=== PATIENT | female | born 1945 | race Caucasian/White ===

== ENCOUNTER 2017-03-22 12:18 | Emergency (ER) | payer MEDICARE, OTHER ==
[2017-03-22 14:16] VITALS: BP 150/69
--- NOTE | 2017-03-22 14:56 | UC ---
Abdominal Pain Female HPI - HPI Summary HPI Summary: Right lower abdomen pain began 2 days after [place] and has been getting worse --change in Bowel Habits (reports always being constipated but now is worse). Has a decreased appetite-unsure about fevers---hurts to lay on right side--- right lower abdomen is tender to touch---patient states she gets swelling in her leg (pointing to her groin) now and then - History of Current Complaint Chief Complaint: UCLowerExtremity Stated Complaint: LEG PAIN Time Seen by Provider: 03/22/17 14:44 Hx Obtained From: Patient ?: No Onset/Duration: Gradual Onset, Lasting Weeks - 2, Still Present Timing: Constant Severity Initially: Moderate Severity Currently: Moderate Pain Intensity: 8 Pain Scale Used: 0-10 Numeric Location: Discrete At: RLQ Radiates: Yes Radiates to: Inguinal Character: Unable to describe Aggravating Factor(s): Movement Alleviating Factor(s): Nothing Associated Signs and Symptoms: Positive: Constipation, Decreased Appetite, Nausea Allergies/Adverse Reactions: Allergies Allergy/AdvReac Type Severity Reaction Status Date / Time Cyclobenzaprine Allergy See Comment Verified 03/22/17 14:17 [From Flexeril] Ibuprofen Allergy Unknown Verified 03/22/17 14:17 Reaction Details Iodine Allergy Unknown Verified 03/22/17 14:17 Reaction Details Home Medications: Home Medications Alprazolam [Xanax] 0.25 mg PO 03/22/17 [History] Aspirin [Aspirin Adult Low Dose] 81 mg PO 03/22/17 [History] Cyclobenzaprine TAB* [Flexeril 10 MG TAB*] 10 mg PO BID PRN 03/22/17 [History Confirmed 03/22/17] Esomeprazole Magnesium [Nexium] 40 mg PO 03/22/17 [History] Rosuvastatin Calcium [Crestor] 20 mg PO 03/22/17 [History] PMH/Surg Hx/FS Hx/Imm Hx Previously Healthy: No - has never had a colonoscopy 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 Endocrine History: Dyslipidemia GI/ History: Gastroesophageal Reflux - Surgical History Surgical History: Yes Surgery Procedure, Year, and Place: tubal ligation - Family History Known Family History: Positive: None - Social History Occupation: Retired Lives: With Family Alcohol Use: None Substance Use Type: None Smoking Status (MU): Never Smoked Tobacco Review of Systems Constitutional: Negative Skin: Negative Eyes: Negative ENT: Negative Respiratory: Negative Cardiovascular: Negative Gastrointestinal: Abdominal Pain, Nausea, Other - Constipation Genitourinary: Negative Motor: Negative Neurovascular: Negative Musculoskeletal: Negative Neurological: Negative Psychological: Negative Is Patient Immunocompromised?: No All Other Systems Reviewed And Are Negative: Yes Physical Exam Triage Information Reviewed: Yes Appearance: Ill-Appearing, Pain Distress - mild, Thin Vital Signs: Initial Vital Signs Temp 99.2 F 03/22/17 14:08 Pulse 111 03/22/17 14:08 Resp 18 03/22/17 14:08 BP 150/69 03/22/17 14:08 Pulse Ox 100 03/22/17 14:08 Vital Signs Reviewed: Yes Eye Exam: Normal Eyes: Positive: Conjunctiva Clear ENT Exam: Normal ENT: Positive: Normal ENT inspection, Hearing grossly normal, Pharynx normal. Negative: Nasal congestion, Trismus, Muffled voice, Hoarse voice, Dental tenderness, Sinus tenderness Dental Exam: Normal Neck exam: Normal Neck: Positive: Supple, Nontender, No Lymphadenopathy Respiratory Exam: Normal Respiratory: Positive: Chest non-tender, Lungs clear, Normal breath sounds, No respiratory distress Cardiovascular Exam: Normal Cardiovascular: Positive: No Murmur, Pulses Normal, Tachycardia Abdominal Exam: Normal Abdomen Description: Positive: No Organomegaly, Soft, Guarding. Negative: CVA Tenderness (R), CVA Tenderness (L) Bowel Sounds: Positive: Present Musculoskeletal Exam: Normal Musculoskeletal: Positive: Strength Intact, ROM Intact, No Edema Neurological Exam: Normal Neurological: Positive: Alert, Muscle Tone Normal Psychological Exam: Normal Skin Exam: Normal Abd Pain Female Course/Dx - Course Course Of Treatment: to [facility] ED for evaluation of abdomen pain - Differential Dx/Diagnosis Provider Diagnoses: Unresolved abdomen pain, Tachycardia Discharge - Discharge Plan Condition: Stable Disposition: OTHER Discharge Disposition Comment: to [facility] by private car, with son driving Patient Education Materials: Acute Abdominal Pain (ED), Hypertension (ED) Referrals: [facility] PHYSICIAN REFERRAL [Outside] - As Soon As Possible Additional Instructions: Please go directly to the Emergency Department for a comprehensive assessment of your abdomen pain
== END 2017-03-22 15:04 ==
LOC: UCEAST 12:18
DX: R10.31 Right lower quadrant pain (principal); R00.0 Tachycardia, unspecified; K59.00 Constipation, unspecified; R11.0 Nausea; Z79.82 Long term (current) use of aspirin; E78.5 Hyperlipidemia, unspecified; K21.9 Gastro-esophageal reflux disease without esophagitis; Z88.6 Allergy status to analgesic agent; Z88.8 Allergy status to other drugs, medicaments and biological substances
CPT/HCPCS: 99202; G0463

== ENCOUNTER 2017-03-22 15:37 | Inpatient (IN) | payer MEDICARE ==
[2017-03-22 17:22] LABS: ABS Basophils 0 10^3/ul (0-0.2); ABS Eosinophils 0.1 10^3/ul (0-0.6); ABS Lymphocytes 1.7 10^3/ul (1.0-4.8); ABS Monocytes 0.8 10^3/ul (0-0.8); ABS Nucleated RBC 0 10^3/ul; Eosinophil % 0.4 % (0-6); Hematocrit 41 % (35-47); Hemoglobin 13.7 g/dl (12.0-16.0); Lymphocyte % 11.3 % (25-47); Mean Corpuscular HGB Conc 34 g/dl (31-36); Mean Corpuscular Hemoglobin 30 pg (27-31); Mean Corpuscular Volume 89 fL (80-97); Mean Platelet Volume 8 um3 (7.4-10.4); Nucleated Red Blood Cells % 0; Platelet Count 332 10^3/ul (150-450); Red Blood Count 4.56 10^6/ul (4.0-5.4); Red Cell Distribution Width 13 % (10.5-15); White Blood Count 14.6 10^3/ul (3.5-10.8)
[2017-03-22 17:33] LABS: EGFR Non-African American 86.5 (>60)
[2017-03-22 18:06] LABS: Urine Appearance Clear; Urine Blood Negative (Negative); Urine Color Straw; Urine Ketones Negative (Negative); Urine Protein Negative (Negative); Urine Specific Gravity 1.002 (1.010-1.030); Urine Urobilinogen Negative (Negative)
[2017-03-22] MEDS ORDERED: NS 0.9% 1000 ML* 1,000 ML IV ONE (21:01)
--- NOTE | 2017-03-22 21:49 | RAD ---
CLINICAL HISTORY: Right lower quadrant pain COMPARISON: None TECHNIQUE: Multiple contiguous axial CT scans were obtained of the abdomen and pelvis, without intravenous contrast enhancement. Coronal and sagittal multiplanar reformations are submitted for review. Oral contrast was not administered. The study is limited by the lack of intravenous contrast. This limits evaluation of the solid organs and vasculature. FINDINGS: LUNG BASES: The lung bases are clear. LIVER: The liver is normal in shape, size, contour, and attenuation. BILE DUCTS: There is no intrahepatic or extrahepatic biliary dilatation. GALLBLADDER: The gallbladder is normal, without pericholecystic inflammatory change. PANCREAS: The pancreas is normal, without mass or ductal dilatation. SPLEEN: Normal in size and appearance. UPPER GI TRACT: Evaluation of the gastrointestinal tract is limited by incomplete gastric distention. The upper GI tract is unremarkable. SMALL BOWEL AND MESENTERY: The small bowel is normal in contour, course, and caliber. There is no obstruction or dilatation. COLON: There is inflammatory change with a soft tissue density within the right lower quadrant measuring 4.4 cm in size, suggestive of phlegmon, consistent with the tip of the appendix in the right ovary. ADRENALS: Normal bilaterally. KIDNEYS: The kidneys are normal in shape, size, contour, and axis. There is no hydronephrosis or nephrolithiasis. BLADDER: The bladder is smooth in contour. PELVIC ORGANS: As noted above there is infiltrate change within the right lower quadrant contiguous with right ovary. Pelvic organs are otherwise unremarkable. AORTA: There is calcific atherosclerotic disease of the abdominal aorta and its branches, without aneurysmal dilatation IVC: Unremarkable LYMPH NODES: There is no lymphadenopathy by size criteria. ABDOMINAL WALL: There is no evidence for abdominal wall hernia. BONES AND SOFT TISSUES: Degenerative changes are noted OTHER: None IMPRESSION: THERE IS INFLAMMATORY CHANGE AND A SOFT TISSUE DENSITY CENTERED ON THE APPENDIX, EXTENDING TO THE RIGHT OVARY, SUGGESTIVE OF PHLEGMON IN THE SETTING OF ACUTE APPENDICITIS. SMALL ABSCESS CAN'T BE EXCLUDED GIVEN THE LACK OF INTRAVENOUS CONTRAST.
[2017-03-22] MEDS ORDERED: HYDROmorphone INJ* 1 MG/ML CARPUJECT SYRINGE IV PRN (23:03)
[2017-03-23] MEDS ORDERED: ZOSYN 3.375 GM x ONE DOSE over 30 miuntes IVPB ×2
[2017-03-23] MEDS: NS 0.9% 1000 ML* 1,000 ML IV SCH ×3 (00:11→21:26)
[2017-03-23] MEDS: Ondansetron INJ* 2 MG/ML VIAL IV PRN (02:55)
--- NOTE | 2017-03-23 04:33 | ED ---
Dima Wall Natalie, scribed for Carlos Enrique Aaron MD on 03/22/17 at 2021 . Abdominal Pain/Female - HPI Summary HPI Summary: The pt is a 71 y/o F presenting to the ED c/o RLQ abd pain for about 5 days. She went to [facility] today for the swelling in her right hip, and thats when she realized that her RLQ was tender, so she was sent to the ED. The pain is rated 5/10. The pain is aggravated by palpitation and BM. She is not in pain when bending over, but the pain in her hip radiates to her knee and becomes worse at night. Pt additionally c/o bloating, flatulence, anxiety, loss of sleep , and decreased appetite. Pt denies painful urination. She has been taking Senokot for a few days. - History of Current Complaint Chief Complaint: EDAbdPain Stated Complaint: ABD PAIN-TRANSFER FROM Time Seen by Provider: 03/22/17 19:56 Hx Obtained From: Patient Onset/Duration: Gradual Onset, Lasting Days - started a few days ago, Still Present Timing: Days Severity Initially: Moderate Severity Currently: Moderate Pain Intensity: 5 Pain Scale Used: 0-10 Numeric Location: Discrete At: RLQ Aggravating Factor(s): Other: - palpitation, flatulence Alleviating Factor(s): Nothing Associated Signs and Symptoms: Positive: Decreased Appetite, Other: - POSITIVE: swelling in right hip, bloating, flatulence, anxiety, sleep loss, dry mouth. Negative: Urinary Symptoms Allergies/Adverse Reactions: Allergies Allergy/AdvReac Type Severity Reaction Status Date / Time Cyclobenzaprine Allergy See Comment Verified 03/22/17 14:17 [From Flexeril] Ibuprofen Allergy Unknown Verified 03/22/17 14:17 Reaction Details Iodine Allergy Unknown Verified 03/22/17 14:17 Reaction Details PMH/Surg Hx/FS Hx/Imm Hx Previously Healthy: No Endocrine/Hematology History: Denies: Hx Diabetes Cardiovascular History: Denies: Hx Hypertension EENT History: Reports: Hx Deafness Psychiatric History: Reports: Hx Anxiety - Surgical History Surgery Procedure, Year, and Place: tubal ligation Infectious Disease History: No Infectious Disease History: Denies: Traveled Outside the [place] in Last 30 Days - Family History Known Family History: Negative: Cardiac Disease, Hypertension - Social History Alcohol Use: None Substance Use Type: Reports: None Smoking Status (MU): Never Smoked Tobacco Review of Systems Gastrointestinal: Other - bloating, flatulence Positive: Abdominal Pain - RLQ Genitourinary: Other - normal urination Positive: Other - right hip pain Neurological: Other - sleep loss, decreased appetite Positive: Anxious All Other Systems Reviewed And Are Negative: Yes Physical Exam Triage Information Reviewed: Yes Vital Signs On Initial Exam: Initial Vitals Temp Pulse Resp BP Pulse Ox 98.1 F 114 20 148/72 100 03/22/17 15:41 03/22/17 15:41 03/22/17 15:41 03/22/17 15:41 03/22/17 15:41 Vital Signs Reviewed: Yes Appearance: Positive: Well-Appearing, No Pain Distress Skin: Positive: Warm, Skin Color Reflects Adequate Perfusion, Dry Head/Face: Positive: Normal Head/Face Inspection Eyes: Positive: EOMI, BARI ENT: Positive: Normal ENT inspection Neck: Positive: Supple, Nontender Respiratory/Lung Sounds: Positive: Clear to Auscultation, Breath Sounds Present Cardiovascular: Positive: Tachycardia, Other - Tympany Abdomen Description: Positive: Soft, Other: - Mild tenderness in RLQ Bowel Sounds: Positive: Present Musculoskeletal: Positive: Normal, Strength/ROM Intact Neurological: Positive: Normal, Sensory/Motor Intact, Alert, Oriented to Person Place, Time Psychiatric: Positive: Affect/Mood Appropriate - [place] Coma Scale Coma Scale Total: 15 Diagnostics - Vital Signs Vital Signs Temp Pulse Resp BP Pulse Ox 03/22/17 19:49 112 97 03/22/17 19:48 142/85 03/22/17 18:52 98.3 F 110 16 128/58 100 03/22/17 17:21 98.4 F 102 16 119/63 99 03/22/17 15:41 98.1 F 114 20 148/72 100 - Laboratory Lab Results: Lab Results 03/22/17 03/22/17 03/22/17 Range/Units 17:03 17:03 17:26 WBC 14.6 H (3.5-10.8) 10^3/ul RBC 4.56 (4.0-5.4) 10^6/ul Hgb 13.7 (12.0-16.0) g/dl Hct 41 (35-47) % MCV 89 (80-97) fL MCH 30 (27-31) pg MCHC 34 (31-36) g/dl RDW 13 (10.5-15) % Plt Count 332 (150-450) 10^3/ul MPV 8 (7.4-10.4) um3 Neut % (Auto) 82.3 (38-83) % Lymph % (Auto) 11.3 L (25-47) % [place] % (Auto) 5.8 (1-9) % Eos % (Auto) 0.4 (0-6) % Baso % (Auto) 0.2 (0-2) % Absolute Neuts (auto) 12.0 H (1.5-7.7) 10^3/ul Absolute Lymphs (auto) 1.7 (1.0-4.8) 10^3/ul Absolute Monos (auto) 0.8 (0-0.8) 10^3/ul Absolute Eos (auto) 0.1 (0-0.6) 10^3/ul Absolute Basos (auto) 0 (0-0.2) 10^3/ul Absolute Nucleated RBC 0 10^3/ul Nucleated RBC % 0 Sodium 134 (133-145) mmol/L Potassium 3.3 L (3.5-5.0) mmol/L Chloride 96 L (101-111) mmol/L Carbon Dioxide 31 (22-32) mmol/L Anion Gap 7 (2-11) mmol/L BUN 6 (6-24) mg/dL Creatinine 0.67 (0.51-0.95) mg/dL Est GFR ( Amer) 111.3 (>60) Est GFR (Non-Af Amer) 86.5 (>60) BUN/Creatinine Ratio 9.0 (8-20) Glucose 178 H (70-100) mg/dL Calcium 9.4 (8.6-10.3) mg/dL Total Bilirubin 0.50 (0.2-1.0) mg/dL AST 13 (13-39) U/L ALT 10 (7-52) U/L Alkaline Phosphatase 72 (34-104) U/L C-React Prot High Sens 38.59 mg/L Total Protein 7.3 (6.4-8.9) g/dL Albumin 3.8 (3.2-5.2) g/dL Globulin 3.5 (2-4) g/dL Albumin/Globulin Ratio 1.1 (1-3) Lipase < 10 L (11.0-82.0) U/L Urine Color Straw Urine Appearance Clear Urine pH 7.0 (5-9) Ur Specific [place] 1.002 L (1.010-1.030) Urine Protein Negative (Negative) Urine Ketones Negative (Negative) Urine Blood Negative (Negative) Urine Nitrate Negative (Negative) Urine Bilirubin Negative (Negative) Urine Urobilinogen Negative (Negative) Ur Leukocyte Esterase 1+ H (Negative) Urine WBC (Auto) Trace(0-5/hpf) (Absent) Urine RBC (Auto) Absent (Absent) Ur Squamous Epith Cells Present H (Absent) Urine Bacteria Absent (Absent) Urine Glucose Negative (Negative) Result Diagrams: 03/22/17 17:03 03/22/17 17:03 Lab Statement: Any lab studies that have been ordered have been reviewed, and results considered in the medical decision making process. - CT Abdomen/Pelvis CT CT Interpretation: Positive (See Comments) - There is inflammatory change and a soft tissue density centered on the appendix, extending to the right ovary, suggestive of phlegmon in the setting of acute appendicitis. Small abscess can' t be excluded given the lack of intravenous contrast. ED physician has reviewed this report. CT Interpretation Completed By: Radiologist - EKG 20:27 Cardiac Rate: Tachycardia EKG Rhythm: Sinus Tachycardia - 100 BPM EKG Interpretation: Nml ST. No ectopy. Abdominal Pain Fem Course/Dx - Course Course Of Treatment: BP noted and advised to follow up with PCP. Medications noted. Allergies noted. DISCUSSED RESULTS WITH PATIENT, SON AND DR HERNANDEZ, SURGERY. ADMIT SURGERY. - Diagnoses Provider Diagnoses: Appendicitis Discharge - Discharge Plan Condition: Stable Disposition: ADMITTED TO [facility] The documentation as recorded by the Dima cody Natalie accurately reflects the service I personally performed and the decisions made by me, Carlos Enrique Aaron MD.
[2017-03-23 05:25] LABS: ABS Basophils 0 10^3/ul (0-0.2); ABS Eosinophils 0.1 10^3/ul (0-0.6); ABS Lymphocytes 1.2 10^3/ul (1.0-4.8); ABS Monocytes 0.8 10^3/ul (0-0.8); ABS Neutrophils 10.7 10^3/ul (1.5-7.7); ABS Nucleated RBC 0 10^3/ul; Eosinophil % 0.4 % (0-6); Hematocrit 36 % (35-47); Hemoglobin 12.4 g/dl (12.0-16.0); Lymphocyte % 9.3 % (25-47); Mean Corpuscular HGB Conc 35 g/dl (31-36); Mean Corpuscular Hemoglobin 30 pg (27-31); Mean Corpuscular Volume 88 fL (80-97); Mean Platelet Volume 8 um3 (7.4-10.4); Nucleated Red Blood Cells % 0; Platelet Count 282 10^3/ul (150-450); Red Blood Count 4.07 10^6/ul (4.0-5.4); Red Cell Distribution Width 13 % (10.5-15); White Blood Count 12.7 10^3/ul (3.5-10.8)
[2017-03-23] MEDS: Piperacillin/Tazobactam VIAL*) 3.375 GM in NS 0.9% 100 ML* 100 ML IVPB SCH ×2 (05:29→14:10)
[2017-03-23 05:44] LABS: EGFR Non-African American 100.2 (>60)
[2017-03-23] MEDS: KCL premix 10MEQ/50 ML x 2 BAGS IV SCH ×2 (09:34→11:01)
--- NOTE | 2017-03-23 10:16 | HP ---
CC: Dr. Sullivan, [facility]; Family Medicine * PRIORITY ADMISSION HISTORY AND PHYSICAL: DATE OF ADMISSION: This patient is seen at [facility] in room 331 on 03/23/17. ATTENDING PHYSICIAN: Dr. Sullivan * (DICTATED BY MIRTHA ARMENTA NP) CHIEF COMPLAINT: Worsening right lower quadrant abdominal pain. HISTORY OF PRESENT ILLNESS: The patient is a 71-year-old female, who presented to the emergency department last evening complaining of right lower quadrant abdominal pain for the past 5 days. She went to the [facility] yesterday for pain and swelling in the right hip region and that is when she realized that she was also having right lower quadrant abdominal pain and she was sent to the emergency department. At that time, she rated the pain at 5/10 and the pain was aggravated by palpation. She denied any fever or chills at home or any vomiting, but states that her appetite has been decreased for about 5 days. She denied any dysuria; she had been taking Senokot for a few days and her last bowel movement was about 3 days ago. CAT scan of the abdomen and pelvis revealed inflammatory changes and soft tissue densities centered on the appendix extending to the right ovary suggestive of phlegmon. This was reviewed by Dr. Sullivan. On admission, her white blood cell count was 14.6 and this morning it is 12.7. On admission, her potassium was 3.3 and this morning it is 3.1 and she will be repleted with potassium IV. PAST MEDICAL HISTORY: Elevated cholesterol, acid reflux, chronic back and joint pain, chronic constipation. PAST SURGICAL HISTORY: Tubal ligation over 30 years ago. MEDICATIONS AT HOME: Include: 1. Nexium. 2. Crestor. 3. Baby aspirin. ALLERGIES: 1. CYCLOBENZAPRINE caused swelling around her eyes. 2. IBUPROFEN caused some type of unspecified swelling. 3. IODINE tablets caused some type of unspecified reaction many years ago. FAMILY HISTORY: Mother of some type of unspecified cancer. Father from emphysema. No known anesthesia complications, blood clots, or bleeding disorders in the family. SOCIAL HISTORY: She lives alone; she has never been a smoker. She denies use of alcohol or other substances. Her son lives nearby and accompanies her this morning. REVIEW OF SYSTEMS: Constitutional: Denies any fever, chills, excessive fatigue , or significant weight loss. Endocrine: No diabetes or thyroid disease. Respiratory: Nonsmoker. No chronic cough or shortness of breath. Cardiovascular: No anginal chest pain or palpitations. Gastrointestinal: As in history of present illness. Genitourinary: No dysuria. No history of kidney stones. General: No history of deep vein thrombosis or pulmonary embolism. No history of blood transfusions. No previous anesthesia complications. Musculoskeletal: Complaints of chronic back pain and muscle spasms. Neurologic: No chronic headaches or blurred vision. No focal weakness. PHYSICAL EXAMINATION GENERAL SURVEY: The patient is a 71-year-old female, well-developed and well- nourished, in no acute distress. HEENT: Benign. NECK: Supple. No cervical lymphadenopathy. LUNGS: Breath sounds bilaterally clear and equal. HEART: Regular rate and rhythm. No murmurs or rubs appreciated. ABDOMEN: Hypoactive bowel sounds. Soft, exquisite tenderness in the periumbilical and right lower quadrant. Mild guarding, no rigidity, no obvious masses or organomegaly, but exam is limited by the patient's discomfort. PELVIC: Deferred. RECTAL: Deferred. EXTREMITIES: Warm without edema or skin ulcerations. NEUROLOGIC: Alert and oriented x3. IMPRESSION: Acute appendicitis. PLAN: Per Dr. Sullivan, the patient will go to the operating room today for laparoscopic appendectomy. She will be repleted with IV potassium preoperatively. She is currently on Zosyn and IV fluids and n.p.o.; I explained the nature of laparoscopic appendectomy, the typical postoperative course, and she and her son have had a chance to ask questions. TIME SPENT: Sixty minutes with more than 50% in [id number] history taking and coordination of care. MIRTHA ARMENTA NP [id number]/[facility] #: [id number] PAIGE
[2017-03-23] MEDS ORDERED: fentaNYL* 50 MCG/ML 2 ML VIAL (100 MCG VIAL) ONE ×3 (15:56→19:04)
[2017-03-23] MEDS ORDERED: Lidocaine 2% PF * 5 ML VIAL ONE (15:56)
[2017-03-23] MEDS ORDERED: Succinylcholine* 20 MG/ML 10 ML VIAL ONE (15:57)
[2017-03-23] MEDS ORDERED: Dexamethasone IV* 4 MG/ML 1 ML (4 MG) ONE (15:57)
[2017-03-23] MEDS ORDERED: Propofol* 10 MG/ML 20 ML BTL IV PUSH ONE (15:57)
[2017-03-23] MEDS ORDERED: Ondansetron INJ* 2 MG/ML VIAL ONE (15:57)
[2017-03-23] MEDS ORDERED: Ketorolac INJ* 30 MG/ML 1 ML VIAL ONE (15:57)
[2017-03-23] MEDS ORDERED: Bupivacaine 0.25% SDV* 30 ML ONE (16:07)
[2017-03-23] MEDS ORDERED: DiMENhydriNATE IV* 50 MG/ML VIAL IV PUSH PRN (18:02)
[2017-03-23] MEDS ORDERED: Naloxone* 0.4 MG/ML 1 ML VIAL IV PRN (18:02)
[2017-03-23] MEDS ORDERED: DiMENhydriNATE IV* 50 MG/ML VIAL ONE (18:02)
[2017-03-23] MEDS ORDERED: Scopolamine 1.5 mg* PATCH TRANSDERM PRN (18:02)
[2017-03-23] MEDS: fentaNYL* 50 MCG/ML 2 ML VIAL (100 MCG VIAL) IV PRN ×4 (18:18→18:29)
[2017-03-23] MEDS ORDERED: Scopolamine 1.5 mg* PATCH ONE (18:31)
[2017-03-23] MEDS ORDERED: HYDROmorphone INJ* 1 MG/ML CARPUJECT SYRINGE ONE (19:19)
[2017-03-23] MEDS ORDERED: Acetaminophen ADULT LIQ* 650 MG/20.3 ML UDC ONE (19:19)
[2017-03-23] MEDS ORDERED: HYDROmorphone INJ* 1 MG/ML CARPUJECT SYRINGE IV PRN (19:34)
[2017-03-23] MEDS ORDERED: Acetaminophen ADULT LIQ* 650 MG/20.3 ML UDC PO ONE (20:00)
[2017-03-23] MEDS ORDERED: HYDROmorphone INJ* 2 MG/ML CARPUJECT SYRINGE IV PRN (21:00)
[2017-03-23] MEDS: Heparin VIAL(*) 5000 UNITS/ML VIAL (FIVE THOUSAND) SUBCUT SCH (21:55)
[2017-03-23] MEDS: Piperacillin/Tazobactam 13.5 GM IV 24 hour continuous infusion IVPB SCH ×2 (21:55)
[2017-03-24] MEDS: Ondansetron INJ* 2 MG/ML VIAL IV PRN (04:28)
[2017-03-24] MEDS: NS 0.9% 1000 ML* 1,000 ML IV SCH (07:56)
[2017-03-24] MEDS: Heparin VIAL(*) 5000 UNITS/ML VIAL (FIVE THOUSAND) SUBCUT SCH ×2 (07:56→21:19)
[2017-03-24] MEDS: ESOMEPRAZOLE 40 MG PO SCH (08:38)
[2017-03-24] MEDS ORDERED: Omeprazole CAP* 20 MG PO SCH (09:00)
[2017-03-24] MEDS: Acetaminophen TAB* 325 MG PO PRN ×2 (14:02→18:41)
--- NOTE | 2017-03-24 14:56 | OP ---
DATE OF OPERATION: 03/23/17 - ROOM #331 DATE OF : 43 SURGEON: Wilian Sullivan MD PULMONARY DISEASE SPECIALIST: None. ANESTHESIOLOGIST: Gold Contreras MD ANESTHESIA: General anesthetic, local infiltration. PRE-OP DIAGNOSIS: Acute appendicitis. POST-OP DIAGNOSIS: Acute appendicitis with perforation and abscess. OPERATIVE PROCEDURE: Laparoscopic appendectomy. DESCRIPTION OF PROCEDURE: The patient was supine on the operating room table. After adequate general anesthetic, compression stockings, Josue-Hugger warmer, and intravenous antibiotics, the abdomen was prepped with antiseptic, draped in a sterile fashion. Small umbilical incision was created and blunt port cannula was placed. Insufflation was carried out with carbon dioxide. Additional cannulae, 5 mm left lower quadrant and left mid abdomen, were placed with small stab wounds under direct vision. The appendix was tucked in behind the terminal ileum and upon lifting up the terminal ileum, abscess was encountered. Culture was taken of this. Irrigation was carried out. The terminal ileum was mobilized off the appendix. The appendix was also adherent on to the right tube and ovary and pelvic side wall. This was mobilized off there. The base of the appendix was not particularly inflamed. The cecum at the base of the appendix was divided using an Endo ALCIRA stapler with a 60-mm babb load and mesoappendix was divided with another firing of the same. The appendix was placed into a retrieval bag and brought out through the umbilical site. The operative field was well irrigated with warm saline solution. Free fluid was suctioned out. A Stefan-Stuart drain was brought in through the left suprapubic incision, passed down into the pelvis, and then the tip up into the region of the abscess in the right lower quadrant. This was sutured to the skin with 3-0 Prolene. The umbilical fascia was closed with 0 Vicryl and the skin with 5-0 Vicryl followed by Steri-Strips. She tolerated the procedure well , was awakened, and brought to Recovery in good condition. No complications. Drain was Stefan-Stuart. Sponge and instrument counts correct. Estimated blood loss less than 50 mL. Specimen was appendix and culture. [id number]/[facility] #: [id number] MTDD
[2017-03-24] MEDS: PTO:Rosuvastatin (NF) 20 MG TAB PO SCH (16:20)
[2017-03-24] MEDS: Piperacillin/Tazobactam 13.5 GM IV 24 hour continuous infusion IVPB SCH ×2 (21:19)
[2017-03-24] MEDS: oxyCODONE/Acetamin 5/325 MG* TAB PO PRN (21:19)
[2017-03-25] MEDS: oxyCODONE/Acetamin 5/325 MG* TAB PO PRN (03:39)
[2017-03-25] MEDS: Ondansetron INJ* 2 MG/ML VIAL IV PRN (05:25)
[2017-03-25] MEDS: NS 0.9% 1000 ML* 1,000 ML IV SCH (05:26)
[2017-03-25 05:52] LABS: ABS Basophils 0 10^3/ul (0-0.2); ABS Eosinophils 0.1 10^3/ul (0-0.6); ABS Lymphocytes 1.6 10^3/ul (1.0-4.8); ABS Monocytes 0.7 10^3/ul (0-0.8); ABS Neutrophils 10.4 10^3/ul (1.5-7.7); ABS Nucleated RBC 0 10^3/ul; Eosinophil % 1.1 % (0-6); Hematocrit 38 % (35-47); Hemoglobin 12.9 g/dl (12.0-16.0); Lymphocyte % 12.3 % (25-47); Mean Corpuscular HGB Conc 34 g/dl (31-36); Mean Corpuscular Hemoglobin 30 pg (27-31); Mean Corpuscular Volume 89 fL (80-97); Mean Platelet Volume 8 um3 (7.4-10.4); Nucleated Red Blood Cells % 0; Platelet Count 337 10^3/ul (150-450); Red Blood Count 4.29 10^6/ul (4.0-5.4); Red Cell Distribution Width 14 % (10.5-15); White Blood Count 12.8 10^3/ul (3.5-10.8)
[2017-03-25 06:07] LABS: EGFR Non-African American 85.1 (>60)
[2017-03-25] MEDS: Heparin VIAL(*) 5000 UNITS/ML VIAL (FIVE THOUSAND) SUBCUT SCH ×2 (09:18→22:09)
[2017-03-25] MEDS: ESOMEPRAZOLE 40 MG PO SCH (09:18)
[2017-03-25] MEDS ORDERED: Docusate CAP* 100 MG PO PRN (09:52)
--- NOTE | 2017-03-25 09:58 | PN ---
Progress Note - Progress Note Date of Service: 03/25/17 SOAP: Subjective: Patient seen and examined at bedside. Reports feeling "lousy", constipated and anxious at times. Denies nausea or vomiting. No fever or chills. Ambulatory down the pal. Objective: VSS, afebrile Lungs CTA bilat. Hear RRR, no murmurs. Abdomen soft, NT, ND. Incisions C/D/I. REBECCA vac with 20 cc serous output. No guarding or rebound. Labs noted, WBC 12,000, K 3.2 I/Os noted Assessment: POD#2, s/p laparoscopic appendectomy for perforated appendicitis with abscess Plan: Continue Zosyn Resume Xanax Hypokalemia, replace K Hopefully home tomorrow 03/26
[2017-03-25] MEDS: Potassium Chloride LIQUID* 20 MEQ PACKET PO SCH (11:00)
[2017-03-25] MEDS: ALPRAZolam TAB* 0.5 MG PO SCH (11:01)
[2017-03-25] MEDS: PTO:Rosuvastatin (NF) 20 MG TAB PO SCH (15:56)
[2017-03-25] MEDS: Acetaminophen TAB* 325 MG PO PRN (19:59)
[2017-03-26] MEDS: Piperacillin/Tazobactam 13.5 GM IV 24 hour continuous infusion IVPB SCH ×4 (02:43→02:47)
[2017-03-26] MEDS: Acetaminophen TAB* 325 MG PO PRN ×2 (05:04→16:36)
[2017-03-26] MEDS: NS 0.9% 1000 ML* 1,000 ML IV SCH (07:28)
[2017-03-26] MEDS: ESOMEPRAZOLE 40 MG PO SCH (07:28)
[2017-03-26] MEDS: ALPRAZolam TAB* 0.5 MG PO SCH (08:32)
[2017-03-26] MEDS: Heparin VIAL(*) 5000 UNITS/ML VIAL (FIVE THOUSAND) SUBCUT SCH ×2 (08:33→22:18)
[2017-03-26] MEDS: Potassium Chloride LIQUID* 20 MEQ PACKET PO SCH (08:33)
[2017-03-26] MEDS ORDERED: Magnesium Hydroxide LIQ* 30 ML UDC PO ONE (10:13)
[2017-03-26] MEDS: PTO:Rosuvastatin (NF) 20 MG TAB PO SCH (16:36)
[2017-03-26] MEDS ORDERED: ALPRAZolam TAB* 0.25 MG PO PRN (23:50)
[2017-03-27] MEDS: Acetaminophen TAB* 325 MG PO PRN ×2 (03:03→11:28)
[2017-03-27] MEDS: Piperacillin/Tazobactam 13.5 GM IV 24 hour continuous infusion IVPB SCH ×2 (03:09)
[2017-03-27] MEDS: Heparin VIAL(*) 5000 UNITS/ML VIAL (FIVE THOUSAND) SUBCUT SCH (09:36)
[2017-03-27] MEDS: Potassium Chloride LIQUID* 20 MEQ PACKET PO SCH (09:36)
[2017-03-27] MEDS: Nystatin SUSPENSION* 100000 UNITS/ML 5 ML UDC PO SCH ×2 (09:36→13:31)
[2017-03-27] MEDS: ALPRAZolam TAB* 0.5 MG PO SCH (09:36)
[2017-03-27] MEDS: PTO:Rosuvastatin (NF) 20 MG TAB PO SCH (09:42)
[2017-03-27] MEDS: ESOMEPRAZOLE 40 MG PO SCH (11:25)
[2017-03-27 12:14] VITALS: BP 132/71
--- NOTE | 2017-03-28 02:16 | DS ---
CC: Wilian Sullivan MD; Calos Yap MD DISCHARGE SUMMARY: DATE OF ADMISSION: 03/23/17 DATE OF DISCHARGE: 03/27/17 PRINCIPAL ADMITTING DIAGNOSIS: Appendicitis with periappendiceal abscess. OPERATIVE PROCEDURE ON THIS ADMISSION: Laparoscopic appendectomy. HOSPITAL COURSE: The patient came to the hospital and was taken to the operating room for laparoscop ic appendectomy and was found to have a periappendiceal abscess. She had drainage from the abscess an d placement of a drain and appendectomy. She was maintained on intravenous antibiotics. Her culture s ultimately grew E. coli, H. parainfluenzae and strep intermedius. She continued to improve and by the fourth day was discharged home on oral antibiotics. She did develop some oral thrush and was sen t home with prescriptions for Augmentin, for nystatin swish and swallow as well as pain medicine. Dwight hair did have some hypertension and will be following up with Dr. Yap for medical evaluation in the p ostoperative period. She will also follow up in our office next week. She was discharged home with i nstruction sheet and we will call in the interim if she has any questions or concerns. [id number]/[facility] #: [id number]
== END 2017-03-27 15:30 | disposition home or self-care (01) | DRG 339 ==
LOC: ED 15:37 → SSU 23:03 → OBSVTOIN 03-23 15:00
PROVIDERS: ADMIT Surgery; ATTEND Surgery
PROC: 0DTJ4ZZ Resection of Appendix, Percutaneous Endoscopic Approach (ICD-10-PCS; principal; 2017-03-23 16:00)
DX: K35.3 Acute appendicitis with localized peritonitis (principal); B37.0 Candidal stomatitis; B95.4 Other streptococcus as the cause of diseases classified elsewhere; E78.00 Pure hypercholesterolemia, unspecified; H91.90 Unspecified hearing loss, unspecified ear; F41.9 Anxiety disorder, unspecified; R40.2412 Glasgow coma scale score 13-15, at arrival to emergency department; E87.6 Hypokalemia; G89.29 Other chronic pain; B96.20 Unspecified Escherichia coli [E. coli] as the cause of diseases classified elsewhere; I10 Essential (primary) hypertension; K21.9 Gastro-esophageal reflux disease without esophagitis; B96.89 Other specified bacterial agents as the cause of diseases classified elsewhere; M54.9 Dorsalgia, unspecified; M25.50 Pain in unspecified joint; K59.09 Other constipation; Z98.51 Tubal ligation status; Z88.6 Allergy status to analgesic agent; Z88.8 Allergy status to other drugs, medicaments and biological substances; Z80.9 Family history of malignant neoplasm, unspecified; Z82.5 Family history of asthma and other chronic lower respiratory diseases
CPT/HCPCS: 36415; 74176; 80048; 80053; 81003; 81015; 83690; 85025; 86141; 87070; 87073; 87077; 87086; 87186; 87205; 87640; 87641; 88304; 93005; 99202; 99284; A9270-GY; G0463; J0330; J1100; J1170; J1240; J1644; J1885; J2405; J2543; J2704; J3010; J3480

== ENCOUNTER 2017-05-29 02:35 | Emergency (ER) | payer MEDICARE ==
[2017-05-29] MEDS ORDERED: Famotidine IV* 10 MG/ML 2 ML (20 mg) IV ONE (03:24)
[2017-05-29] MEDS ORDERED: Ketorolac INJ* 30 MG/ML 1 ML VIAL IV ONE (03:24)
[2017-05-29] MEDS ORDERED: Acetaminophen TAB* 325 MG PO ONE (03:24)
[2017-05-29 03:58] LABS: ABS Basophils 0 10^3/ul (0-0.2); ABS Eosinophils 0 10^3/ul (0-0.6); ABS Lymphocytes 1.4 10^3/ul (1.0-4.8); ABS Monocytes 0.5 10^3/ul (0-0.8); ABS Neutrophils 8.9 10^3/ul (1.5-7.7); ABS Nucleated RBC 0 10^3/ul; Eosinophil % 0.5 % (0-6); Hematocrit 45 % (35-47); Hemoglobin 15.3 g/dl (12.0-16.0); Lymphocyte % 12.7 % (25-47); Mean Corpuscular HGB Conc 34 g/dl (31-36); Mean Corpuscular Hemoglobin 30 pg (27-31); Mean Corpuscular Volume 89 fL (80-97); Mean Platelet Volume 8 um3 (7.4-10.4); Nucleated Red Blood Cells % 0; Platelet Count 248 10^3/ul (150-450); Red Blood Count 5.03 10^6/ul (4.0-5.4); Red Cell Distribution Width 13 % (10.5-15); White Blood Count 10.8 10^3/ul (3.5-10.8)
[2017-05-29] MEDS ORDERED: Al Hydrox/Mg Hydrox/Simet LIQ* 30 ML UDC PO ONE (04:07)
[2017-05-29] MEDS ORDERED: Lidocaine 2% VISCOUS* 15 ML UDC PO ONE (04:07)
[2017-05-29 04:10] LABS: EGFR Non-African American 74.8 (>60)
[2017-05-29 05:52] VITALS: BP 145/79
--- NOTE | 2017-05-29 09:08 | RAD ---
INDICATION: Chest pain COMPARISON: None. TECHNIQUE: Single AP portable view of the chest was obtained. FINDINGS: Image quality is compromised due to the relative inferiority of a portable chest x-ray. The heart and mediastinum exhibit normal size and contour. The lungs are grossly clear. There is no evidence of a large pleural effusion. Visualized bones are normal for the patient's age. IMPRESSION: No radiographic evidence for acute cardiopulmonary abnormality on this portable chest x-ray.
--- NOTE | 2017-05-29 15:48 | ED ---
Nicola Wall Sixian, scribed for Reed Jean Baptiste MD on 05/29/17 at 0323 . HPI Chest Pain - HPI Summary HPI Summary: This patient is a 71 year old F presenting to ED with a chief complaint of chest pain since 1800 one day ago. Patient reports heartburn for 4-5 hours and "a pinching feeling" near her left breast. The patient rates the pain 0/10 in severity at this time. Symptoms aggravated by recent excessive chocolate intake.. Patient does some reports anxiety with the symptoms. Patient denies SOB , dizziness, diaphoresis, lightheadedness or N/V. - History of Current Complaint Chief Complaint: EDChestPainROMI Time Seen by Provider: 05/29/17 02:54 Hx Obtained From: Patient Onset/Duration: Started Hours Ago, Still Present Timing: Constant, Lasting Hours Current Severity: None Pain Intensity: 0 Pain Scale Used: 0-10 Numeric Chest Pain Radiates: No Chest Pain Radiates To:: Other - none Character: Other: - pinching Aggravating Factor(s): Nothing Alleviating Factor(s): Nothing Associated Signs and Symptoms: Positive: Other: - Patient reports heartburn, anxiety. Patient denies SOB, dizziness, diaphoresis. - Additional Pertinent History Primary Care Physician: [id number] - Allergy/Home Medications Allergies/Adverse Reactions: Allergies Allergy/AdvReac Type Severity Reaction Status Date / Time cyclobenzaprine Allergy Swelling Verified 05/29/17 02:44 ibuprofen Allergy Swelling Verified 05/29/17 02:44 iodine Allergy Swelling Verified 05/29/17 02:44 PMH/Surg Hx/FS Hx/Imm Hx Endocrine/Hematology History: Denies: Hx Diabetes Cardiovascular History: Reports: Hx Hypercholesterolemia - on crestor, Other Cardiovascular Problems/Disorders - high cholesterol Denies: Hx Hypertension GI History: Reports: Hx Gastroesophageal Reflux Disease Musculoskeletal History: Reports: Other Musculoskeletal History - spasms Sensory History: Reports: Hx Contacts or Glasses - reading, Hx Deafness Denies: Hx Hearing Aid Opthamlomology History: Reports: Hx Contacts or Glasses - reading Psychiatric History: Reports: Hx Anxiety - Surgical History Surgery Procedure, Year, and Place: tubal ligation Hx Anesthesia Reactions: No Infectious Disease History: No Infectious Disease History: Denies: Traveled Outside the [place] in Last 30 Days - Family History Known Family History: Negative: Cardiac Disease, Hypertension - Social History Alcohol Use: None Substance Use Type: Reports: None Smoking Status (MU): Never Smoked Tobacco Review of Systems Negative: Skin Diaphoresis Cardiovascular: Other - heart burn Positive: Chest Pain Negative: Shortness Of Breath Neurological: Negative - dizziness Positive: Anxious All Other Systems Reviewed And Are Negative: Yes Physical Exam - Summary Physical Exam Summary: Appearance: Well-appearing, no distress, Well-nourished Skin: Warm, color reflects adequate perfusion Head: Normal Head/Face inspection Eyes: EOMI ENT: Normal inspection Neck: Supple, no nodes, no JVD. Respiratory: Lungs clear, Normal breath sounds, no respiratory distress; mild reproducible tenderness at left anterior chest wall at T5 area Cardio: RRR, No murmur, pulses normal, brisk capillary refill Abdomen: soft, nontender, no guarding, no rebound Bowel sounds: present Musculoskeletal: Strength Intact/ ROM intact. No calf tenderness. No edema. Neuro: Alert, muscle tone normal, facial symmetry, speech normal, sensory/motor intact Psychological: Normal Triage Information Reviewed: Yes Vital Signs On Initial Exam: Initial Vitals Temp Pulse Resp BP Pulse Ox 97.3 F 120 20 150/85 100 05/29/17 02:36 05/29/17 02:36 05/29/17 02:36 05/29/17 02:36 05/29/17 02:36 Vital Signs Reviewed: Yes Diagnostics - Vital Signs Vital Signs Temp Pulse Resp BP Pulse Ox 05/29/17 02:36 97.3 F 120 20 150/85 100 - Laboratory Lab Results: Lab Results 05/29/17 05/29/17 Range/Units 03:37 03:37 WBC 10.8 (3.5-10.8) 10^3/ul RBC 5.03 (4.0-5.4) 10^6/ul Hgb 15.3 (12.0-16.0) g/dl Hct 45 (35-47) % MCV 89 (80-97) fL MCH 30 (27-31) pg MCHC 34 (31-36) g/dl RDW 13 (10.5-15) % Plt Count 248 (150-450) 10^3/ul MPV 8 (7.4-10.4) um3 Neut % (Auto) 82.3 (38-83) % Lymph % (Auto) 12.7 L (25-47) % [place] % (Auto) 4.3 (0-7) % Eos % (Auto) 0.5 (0-6) % Baso % (Auto) 0.2 (0-2) % Absolute Neuts (auto) 8.9 H (1.5-7.7) 10^3/ul Absolute Lymphs (auto) 1.4 (1.0-4.8) 10^3/ul Absolute Monos (auto) 0.5 (0-0.8) 10^3/ul Absolute Eos (auto) 0 (0-0.6) 10^3/ul Absolute Basos (auto) 0 (0-0.2) 10^3/ul Absolute Nucleated RBC 0 10^3/ul Nucleated RBC % 0 Sodium 136 (133-145) mmol/L Potassium 3.8 (3.5-5.0) mmol/L Chloride 103 (101-111) mmol/L Carbon Dioxide 26 (22-32) mmol/L Anion Gap 7 (2-11) mmol/L BUN 13 (6-24) mg/dL Creatinine 0.76 (0.51-0.95) mg/dL Est GFR ( Amer) 96.2 (>60) Est GFR (Non-Af Amer) 74.8 (>60) BUN/Creatinine Ratio 17.1 (8-20) Glucose 139 H (70-100) mg/dL Calcium 10.1 (8.6-10.3) mg/dL Total Bilirubin 0.40 (0.2-1.0) mg/dL AST 15 (13-39) U/L ALT 14 (7-52) U/L Alkaline Phosphatase 70 (34-104) U/L Troponin I 0.00 (<0.04) ng/mL Total Protein 7.3 (6.4-8.9) g/dL Albumin 4.4 (3.2-5.2) g/dL Globulin 2.9 (2-4) g/dL Albumin/Globulin Ratio 1.5 (1-3) Lipase < 10 L (11.0-82.0) U/L Result Diagrams: 05/29/17 03:37 05/29/17 03:37 Lab Statement: Any lab studies that have been ordered have been reviewed, and results considered in the medical decision making process. - Radiology CXR Radiology Interpretation Completed By: ED Physician - No acute disease process. - EKG 0244 Cardiac Rate: NL EKG Rhythm: Sinus Tachycardia - 113 BPM EKG Interpretation: Normal intervals, axis. No ST, T wave changes. Re-Evaluation - Re-Evaluation First Eval Change: Improved - pt resting comfortably in bed. pt chest pain resolved pt HEART score - 1; pt with atypical symptoms, likely secondaty to GERD vs gastritis vs costochondritis. Chest Pain Course/Dx - Course Assessment/Plan: Pt with low risk chest pain. Pt symptoms atypical. Plan for symptomatic tx with outp f/u. - Chest Pain Differential Diagnosis/HQI/PQRI: Acute IN, ACS, Angina, CHF, Chest Wall, Pulmonary Edema, Pulmonary Embolism - Diagnoses Provider Diagnoses: Atypical chest pain Discharge - Discharge Plan Condition: Improved Disposition: HOME Prescriptions: Tramadol HCl/Acetaminophen [Ultracet Tablet] 1 each PO Q6HR PRN 3 Days #10 tablet MDD 4 PRN Reason: Pain Patient Education Materials: Chest Pain (ED), Gastritis (ED) Referrals: No Primary Care Phys,NOPCP [Primary Care Provider] - Additional Instructions: RETURN TO THE EMERGENCY DEPARTMENT FOR CHANGING OR WORSENING SYMPTOMS. The documentation as recorded by the Nicola cody Sixian accurately reflects the service I personally performed and the decisions made by , Reed Jean Baptiste MD.
== END 2017-05-29 05:54 | disposition home or self-care (01) ==
LOC: ED 02:35
DX: R07.89 Other chest pain (principal); Z88.6 Allergy status to analgesic agent; Z88.8 Allergy status to other drugs, medicaments and biological substances
CPT/HCPCS: 36415; 71045; 80053; 83690; 84484; 85025; 93005; 99283; A9270-GY; J1885

== ENCOUNTER 2018-08-10 18:31 | Emergency (ER) | payer MEDICARE, OTHER ==
[2018-08-10] MEDS ORDERED: Cyclobenzaprine TAB* 10 MG PO ONE (19:16)
--- NOTE | 2018-08-10 19:19 | ED ---
Back Pain - HPI Summary HPI Summary: Patient complains of left lower back pain starting yesterday after working in the yard. Patient has history of same. Denies radiation of pain down left leg , but states history of lower back pain with pain radiating down left leg. Denies urinary retention, incontinence, loss of function or sensation in lower extremities. Patient ambulatory. Pain when rising from sitting to standing position. Denies any other symptoms injury or pain. - History of Current Complaint Chief Complaint: EDBackInjuryPain Stated Complaint: I CANT SIT PER PT Time Seen by Provider: 08/10/18 18:52 Hx Obtained From: Patient Onset/Duration: Sudden Onset Onset/Duration: Started Hours Ago Timing: Intermittent Severity Currently: None Pain Intensity: 0 Pain Scale Used: 0-10 Numeric Character: Aching Aggravating Symptom(s): Movement Alleviating Symptom(s): Rest, Position Associated Signs And Symptoms: Positive: Negative - Allergies/Home Medications Allergies/Adverse Reactions: Allergies Allergy/AdvReac Type Severity Reaction Status Date / Time cyclobenzaprine Allergy Swelling Verified 08/10/18 18:38 ibuprofen Allergy Swelling Verified 08/10/18 18:38 iodine Allergy Swelling Verified 08/10/18 18:38 PMH/Surg Hx/FS Hx/Imm Hx Endocrine/Hematology History: Denies: Hx Diabetes Cardiovascular History: Reports: Hx Hypercholesterolemia - on crestor, Other Cardiovascular Problems/Disorders - high cholesterol Denies: Hx Hypertension GI History: Reports: Hx Gastroesophageal Reflux Disease History: Denies: Hx Dialysis Musculoskeletal History: Reports: Other Musculoskeletal History - spasms Sensory History: Reports: Hx Contacts or Glasses - reading, Hx Deafness Denies: Hx Hearing Aid Opthamlomology History: Reports: Hx Contacts or Glasses - reading Neurological History: Denies: Hx Developmental Delay Psychiatric History: Reports: Hx Anxiety - Surgical History Surgery Procedure, Year, and Place: tubal ligation Hx Anesthesia Reactions: No Infectious Disease History: No Infectious Disease History: Denies: Traveled Outside the [place] in Last 30 Days - Family History Known Family History: Positive: None Negative: Cardiac Disease, Hypertension - Social History Alcohol Use: None Substance Use Type: Reports: None Smoking Status (MU): Never Smoked Tobacco Review of Systems Constitutional: Negative Eyes: Negative ENT: Negative Cardiovascular: Negative Respiratory: Negative Gastrointestinal: Negative Genitourinary: Negative Musculoskeletal: Other Skin: Negative Neurological: Negative Psychological: Normal All Other Systems Reviewed And Are Negative: Yes Physical Exam - Summary Physical Exam Summary: Pain with palpation of left lower paraspinal muscles. No ecchymosis, erythema, deformity, swelling noted to patient able to flex and extend bilateral hips and knees with mild pain on left lower back. Patient ambulatory. Triage Information Reviewed: Yes Vital Signs On Initial Exam: Initial Vitals Temp Pulse Resp BP Pulse Ox 98.2 F 112 16 172/107 99 08/10/18 18:33 08/10/18 18:33 08/10/18 18:33 08/10/18 18:33 08/10/18 18:33 Vital Signs Reviewed: Yes Appearance: Positive: Well-Appearing Skin: Positive: Warm Head/Face: Positive: Normal Head/Face Inspection Eyes: Positive: Normal Neck: Positive: Supple Respiratory/Lung Sounds: Positive: Clear to Auscultation Cardiovascular: Positive: Normal Abdomen Description: Positive: Nontender Musculoskeletal: Positive: Normal Neurological: Positive: Normal Psychiatric: Positive: Normal AVPU Assessment: Alert - Ash Coma Scale Best Eye Response: 4 - Spontaneous Best Motor Response: 6 - Obeys Commands Best Verbal Response: 5 - Oriented Coma Scale Total: 15 Diagnostics - Vital Signs Vital Signs Temp Pulse Resp BP Pulse Ox 08/10/18 18:33 98.2 F 112 16 172/107 99 - Laboratory Lab Statement: Any lab studies that have been ordered have been reviewed, and results considered in the medical decision making process. Back Pain Course/Dx - Course Course Of Treatment: Patient complains of left lower back pain starting yesterday after working in the yard. Patient has history of same. Denies radiation of pain down left leg, but states history of lower back pain with pain radiating down left leg. Denies urinary retention, incontinence, loss of function or sensation in lower extremities. Patient ambulatory. Pain when rising from sitting to standing position. Denies any other symptoms injury or pain. Physical exam:Pain with palpation of left lower paraspinal muscles. No ecchymosis, erythema, deformity, swelling noted to patient able to flex and extend bilateral hips and knees with mild pain on left lower back. Patient ambulatory. Vital signs within normal limits. Rx for Flexeril. - Diagnoses Provider Diagnoses: Muscle spasm Discharge - Sign-Out/Discharge Documenting (check all that apply): Patient Departure Patient Received Moderate/Deep Sedation with Procedure: No - Discharge Plan Condition: Stable Disposition: HOME Prescriptions: Cyclobenzaprine TAB* [Flexeril 10 MG TAB*] 10 mg PO TID PRN 5 Days #15 tab PRN Reason: Pain Patient Education Materials: Muscle Spasm (ED) Referrals: Calos Yap MD [Primary Care Provider] - Additional Instructions: Take Flexeril as directed for back pain. Take Tylenol 500 mg every 4 hours for pain. Follow-up with primary care. - Billing Disposition and Condition Condition: STABLE Disposition: Home
[2018-08-10 19:43] VITALS: BP 147/63
== END 2018-08-10 19:42 | disposition home or self-care (01) ==
LOC: ED 18:31
DX: M54.5 Low back pain (principal); M62.838 Other muscle spasm; K21.9 Gastro-esophageal reflux disease without esophagitis; E78.00 Pure hypercholesterolemia, unspecified; Z88.6 Allergy status to analgesic agent
CPT/HCPCS: 99282; A9270-GY